=== PATIENT | female | born 1980 | race Caucasian/White ===

== ENCOUNTER → 2021-06-04 14:07 | Outpatient (BNVA) | payer OTHER, SELFPAY | PROVIDERS: PCP Nurse Practitioner Family; Visit Provider Internal Medicine | DX: M25.50 Pain in unspecified joint (principal); M54.50 Low back pain, unspecified; Z11.59 Encounter for screening for other viral diseases; Z82.61 Family history of arthritis; F17.210 Nicotine dependence, cigarettes, uncomplicated | CPT/HCPCS: 99204 ==

== ENCOUNTER 2021-06-04 15:16 | Outpatient (CLI) | payer OTHER, SELFPAY ==
--- NOTE | 2021-06-04 15:21 | XR_ITS ---
WS: [id number] Exam: XR hand LT 2V [id number] Date/Time of Exam: 06/04/2021 3:23 PM Reason For Exam: M25.50 - Pain in unspecified joint Findings: No fractures, soft tissue swelling, or unusual calcifications are noted. The hand shows normal bony alignment. There is no irregularity of the bony architecture. XR/XR hand LT 2V [id number] IMPRESSION: Normal left hand..
--- NOTE | 2021-06-04 15:21 | XR_ITS ---
WS: [id number] Exam: XR hand RT 2V [id number] Date/Time of Exam: 06/04/2021 3:23 PM Reason For Exam: M25.50 - Pain in unspecified joint Findings: No fractures, soft tissue swelling, or unusual calcifications are noted. The hand shows normal bony alignment. There is no irregularity of the bony architecture. XR/XR hand RT 2V [id number] IMPRESSION: Normal right hand.
--- NOTE | 2021-06-04 15:21 | XR_ITS ---
WS: [id number] Exam: XR sacroiliac jts m 3V [id number] Date/Time of Exam: 06/04/2021 3:23 PM Reason For Exam: L40.9 - Psoriasis, unspecified No fracture or dislocation. 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 No sign of bone destruction. 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 XR/XR sacroiliac jts m 3V [id number] IMPRESSION: 1. No fracture or bone destruction. 2. Mild SI joint DJD.
[2021-06-04 16:36] LABS: Hepatitis B Core AB, Total Non-Reactive (Nonreactive); Hepatitis B Surface Antigen Non-Reactive (Nonreactive); Hepatitis C Virus Antibody Non-Reactive (Nonreactive)
[2021-06-04 16:46] LABS: Creatine Phosphokinase 49 U/L (26-192); Ferritin 23 ng/mL (15-150); Iron 47 ug/dL (37-145); Magnesium 2.1 mg/dL (1.7-2.3); Phosphorus 3.1 mg/dL (2.5-4.5); Thyroid Stimulating Hormone 1.12 uIU/mL (0.27-4.20); Vitamin B12 368 pg/mL (232-1245)
[2021-06-04 17:24] LABS: 25 Hydroxy Vitamin D > 100 ng/mL (30-100)
[2021-06-05 12:23] LABS: COMPLEMENT, TOTAL (CH50) >60 U/mL (31-60)
[2021-06-05 12:47] LABS: COMPLEMENT COMPONENT C3C 126 mg/dL (83-193); COMPLEMENT COMPONENT C4C 28 mg/dL (15-57)
[2021-06-05 14:00] LABS: Erythrocyte Sedimentation Rate 11 mm/hr (0-15)
[2021-06-05 14:47] LABS: Cyclic Citrullinated Peptide <16 UNITS
[2021-06-05 16:17] LABS: CENTROMERE B ANTIBODY <1.0 NEG AI (<1.0 NEG); JO-1 ANTIBODY <1.0 NEG AI (<1.0 NEG); RNP ANTIBODY <1.0 NEG AI (<1.0 NEG); SCL-70 ANTIBODY <1.0 NEG AI (<1.0 NEG); SJOGREN'S ANTIBODY (SS-A) <1.0 NEG AI (<1.0 NEG); SM ANTIBODY <1.0 NEG AI (<1.0 NEG); SS-B <1.0 NEG AI (<1.0 NEG)
[2021-06-05 16:58] LABS: ANA SCREEN, IFA NEGATIVE (NEGATIVE); THYROID PEROXIDASE ANTIBODIES <1 IU/mL (<9)
[2021-06-09 16:59] LABS: DNA AB (DS) CRITHIDIA,IFA NEGATIVE (NEGATIVE)
== END 2021-06-04 15:17 | disposition home or self-care (01) ==
LOC: RAD 15:17
PROVIDERS: PCP Nurse Practitioner Family; Visit Provider Internal Medicine
DX: L40.9 Psoriasis, unspecified (principal); M25.50 Pain in unspecified joint; Z11.59 Encounter for screening for other viral diseases
CPT/HCPCS: 36415; 72202; 73120; 82306; 82550; 82607; 82728; 83540; 83735; 84100; 84443; 85651; 86160; 86162; 86200; 86235; 86255; 86376; 86431; 86704; 86803; 87340

== ENCOUNTER 2021-07-06 16:22 | Outpatient (CLI) | payer OTHER, SELFPAY ==
[2021-07-06 17:36] LABS: Calcium 9.9 mg/dL (8.5-10.5)
[2021-07-06 17:44] LABS: 25 Hydroxy Vitamin D 13 ng/mL (30-100)
== END 2021-07-06 16:23 | disposition home or self-care (01) ==
PROVIDERS: PCP Nurse Practitioner Family; Visit Provider Internal Medicine
DX: E67.3 Hypervitaminosis D (principal); R76.8 Other specified abnormal immunological findings in serum
CPT/HCPCS: 82306; 82310; 83970